=== PATIENT | male | born 1945 | race Asian ===

== ENCOUNTER 2020-10-10 02:45 | Inpatient (IN) | payer OTHER ==
[2020-10-10] VITALS (56 sets, daily range): BP systolic 70–120; BP diastolic 39–83; TEMP 95.2–98.6; Ht 172.7 cm; Wt 95.7 kg
[~2020-10-10] VITALS: Ht 172.7 cm; Wt 95.7 kg
[2020-10-10 03:19] LABS: PLATELET COUNT 180 K/uL (142-355)
[2020-10-10 03:32] LABS: POTASSIUM 3.7 mmol/L (3.6-5.2)
[2020-10-10 10:22] LABS: PLATELET COUNT 157 K/uL (142-355)
[2020-10-10 10:31] LABS: POTASSIUM 4.1 mmol/L (3.6-5.2)
[2020-10-11] VITALS (24 sets, daily range): BP systolic 89–1115; BP diastolic 56–90; TEMP 97.7–98.8
[2020-10-11 05:44] LABS: PLATELET COUNT 202 K/uL (142-355)
[2020-10-11 06:14] LABS: POTASSIUM 4.3 mmol/L (3.6-5.2); SODIUM 145 mmol/L (136-145)
[2020-10-12] VITALS (24 sets, daily range): BP systolic 123–146; BP diastolic 72–94; TEMP 97.5–100.9
[2020-10-12 05:45] LABS: PLATELET COUNT 237 K/uL (142-355)
[2020-10-12 05:53] LABS: POTASSIUM 3.7 mmol/L (3.6-5.2)
[2020-10-13] VITALS (23 sets, daily range): BP systolic 123–1644; BP diastolic 73–98; TEMP 97.9–99.1
[2020-10-13 05:51] LABS: PLATELET COUNT 246 K/uL (142-355)
[2020-10-13 06:09] LABS: POTASSIUM 3.6 mmol/L (3.6-5.2)
[2020-10-14] VITALS (24 sets, daily range): BP systolic 133–159; BP diastolic 79–94; TEMP 97.5–99.4
[2020-10-14 03:37] LABS: PLATELET COUNT 249 K/uL (142-355)
[2020-10-14 03:48] LABS: POTASSIUM 3.7 mmol/L (3.6-5.2)
[2020-10-15] VITALS (24 sets, daily range): BP systolic 131–156; BP diastolic 72–101; TEMP 97.6–278
[2020-10-15 05:14] LABS: PLATELET COUNT 253 K/uL (142-355)
[2020-10-15 05:54] LABS: POTASSIUM 4.4 mmol/L (3.6-5.2)
[2020-10-16] VITALS (23 sets, daily range): BP systolic 97–152; BP diastolic 54–91; TEMP 97.6–99.1
[2020-10-16 05:53] LABS: PLATELET COUNT 197 K/uL (142-355)
[2020-10-16 06:29] LABS: POTASSIUM 5.2 mmol/L (3.6-5.2)
[2020-10-17] VITALS (81 sets, daily range): BP systolic 81–129; BP diastolic 04–123; TEMP 97.7–998.7
[2020-10-17 01:51] LABS: PLATELET COUNT 162 K/uL (142-355)
[2020-10-17 02:12] LABS: POTASSIUM 6.3 mmol/L (3.6-5.2)
[2020-10-18] VITALS (41 sets, daily range): BP systolic 64–202; BP diastolic 43–129; TEMP 97.6–99.6
[2020-10-18 06:08] LABS: PLATELET COUNT 122 K/uL (142-355)
[2020-10-18 06:31] LABS: POTASSIUM 6.9 mmol/L (3.6-5.2)
== END 2020-10-18 21:30 | disposition expired | DRG 207 ==
LOC: ED 02:51 → ICU 04:50
PROVIDERS: Internal Medicine; ADMIT Emergency Medicine Emergency Medical Services; ATTEND Internal Medicine Endocrinology, Diabetes & Metabolism
PROC: 5A1955Z Respiratory Ventilation, Greater than 96 Consecutive Hours (ICD-10-PCS; principal; 2020-10-10)
PROC: 0BH17EZ Insertion of Endotracheal Airway into Trachea, Via Natural or Artificial Opening (ICD-10-PCS; 2020-10-10)
PROC: 02HV33Z Insertion of Infusion Device into Superior Vena Cava, Percutaneous Approach (ICD-10-PCS; 2020-10-10)
PROC: B548ZZA Ultrasonography of Superior Vena Cava, Guidance (ICD-10-PCS; 2020-10-10)
PROC: 30233N1 Transfusion of Nonautologous Red Blood Cells into Peripheral Vein, Percutaneous Approach (ICD-10-PCS; 2020-10-17)
DX: U07.1 COVID-19 (principal); J96.01 Acute respiratory failure with hypoxia; J18.8 Other pneumonia, unspecified organism; K92.2 Gastrointestinal hemorrhage, unspecified; J44.0 Chronic obstructive pulmonary disease with (acute) lower respiratory infection; N17.8 Other acute kidney failure; I46.9 Cardiac arrest, cause unspecified; I95.89 Other hypotension; R00.0 Tachycardia, unspecified; E11.9 Type 2 diabetes mellitus without complications; I10 Essential (primary) hypertension
CPT/HCPCS: 36415; 36571; 36591; 36600; 51702; 80048; 80053; 80162; 82271; 82272; 82570; 82805; 83605; 83735; 83880; 83986; 84100; 84300; 84484; 85007; 85014; 85018; 85027; 85610; 85730; 86850; 86900; 86901; 86922; 87040; 87635; 93005; 94002; 94003; 94640; 94664; 94667; 94760; 96360; 96361; 96365; 96375; 99285; 99291; J1956; C1751; J0132; J0171; J0456; J0610; J0696; J1100; J1160; J1644; J1720; J1815; J2250; J2270; J3020; J3490; P9016; P9047; U0003